=== PATIENT | male | born 1970 | race Caucasian/White ===

== ENCOUNTER 2016-07-06 10:57 | Emergency (ER) | payer BC ==
[2016-07-06] MEDS ORDERED: Sodium Chloride 0.9% 10 ML Syringe FLUSH PRN (11:37)
--- NOTE | 2016-07-06 11:41 | EDM.PDOC ---
ED HPI GI/ABDOMINAL - General Chief Complaint: Abdominal Pain Stated Complaint: ABDOMINAL PAIN/VOMITING/FEVER Time Seen by Provider: 07/06/16 11:13 Source of Information: Reports: Patient History Limitations: Reports: No limitations - History of Present Illness INITIAL COMMENTS - FREE TEXT/NARRATIVE: Patient is a 45-year-old male who presents to the ED complaining of shortness of breath, cough, epigastric discomfort, abdominal pain right upper and right lower quadrant, fever/chills, chronic diarrhea, and recent fever 100.4. Patient states he has chronic diarrhea and has been taking Imodium 4 times a day. This has been present since November of 2015. He's had a full workup including colonoscopy, EGD, and stool cultures. Patient states last night developed worsening pain to his epigastric region with fever/chills. States pain has progressively worsened over the evening. Denies any increase acid reflux. Still has appendix and gallbladder present. States discomfort is not related to eating. States diarrhea does increase with eating. In addition he' s had a cough for almost one month with increased mucus production recently. States he has chronic shortness of breath with increased tachycardia. Patient currently denies any chest pain, fever/chills, nausea/vomiting, pain with urination, and lightheadedness, dizziness, or any additional complaints. Past medical history includes chronic diarrhea, left ventricular hypertrophy, skin cancer. Current medications taking tramadol for bilateral knee pain, Imodium, nicardipine, atenolol, and Plavix. Patient denies any heart history unaware why he is on plavix. He is also taking cipro intermittently for epididymitis. Location: other (RUQ/RLQ) Quality: Reports: ache Severity: moderate Worsens with: Reports: palpation Context: Denies: sick contact, bad/questionable food, out of country travel, recent surgery, recent trauma, lifting, activity/exercise Associated Symptoms: Reports: diarrhea, fever/chills, loss of appetite, malaise , nausea/vomiting. Denies: chest pain, back pain, testicular pain, groin pain, shoulder pain, constipation, bloody stools - Related Data Allergies/ADRs: Allergies Allergy/AdvReac Type Severity Reaction Status Date / Time No Known Allergies Allergy Verified 07/06/16 11:09 Home Meds: Home Meds metFORMIN HCl [Metformin HCl] 500 mg PO BID #60 tablet 07/06/16 [Rx] ED ROS GENERAL - Review of Systems Review Of Systems: See Below Constitutional: Reports: fever, chills, malaise, decreased appetite Respiratory: Reports: Shortness of Breath, Cough, Sputum. Denies: Wheezing, Pleuritic Chest Pain, Hemoptysis Cardiovascular: Reports: Dyspnea on exertion. Denies: Chest pain, Edema, Lightheadedness, Palpitations, Syncope GI/Abdominal: Reports: Abdominal pain, Diarrhea, Decreased appetite, Nausea, Vomiting. Denies: Black stool, Bloody stool, Constipation, Distension, Flatus, Hematemesis, Melena, Stool incontinence : Denies: discharge, dysuria (Hx of epidymitis), flank pain, frequency, hematuria, pain Neurological: Denies: Confusion, Dizziness ED EXAM, GI/ABD - Physical Exam Exam: See Below General Appearance: alert, WD/WN, no apparent distress Eyes: bilateral: EOMI, erythema Ears: hearing grossly normal Nose: normal inspection Throat/Mouth: Normal inspection, Normal oropharynx, Normal voice, No airway compromise Neck: normal inspection, supple. No: lymphadenopathy (L), lymphadenopathy (R) Respiratory/Chest: no respiratory distress, lungs clear, normal breath sounds, no accessory muscle use, chest non-tender Cardiovascular: normal peripheral pulses, no murmur, tachycardia GI/Abdominal: normal bowel sounds, soft, no organomegaly, no distention, tenderness (epigastric/RUQ/RLQ) (Male) Exam: Deferred Rectal (Males) Exam: Deferred Back Exam: normal inspection. No: CVA tenderness (L), CVA tenderness (R) Extremities: normal inspection, non-tender, no pedal edema, normal capillary refill Neurological: alert, oriented, CN II-XII intact, normal cognition, no motor/ sensory deficits Psychiatric: normal affect, normal mood Skin Exam: Warm, Dry, Intact, Normal color, No rash Course - Vital Signs Last Recorded V/S: Last Vital Signs Temp 99.6 F 07/06/16 11:09 Pulse 89 07/06/16 16:30 Resp 18 07/06/16 16:30 BP 154/100 H 07/06/16 16:30 Pulse Ox 99 07/06/16 16:30 - Orders/Labs/Meds Orders: Active Orders 24 hr Category Date Time Status EKG Documentation Completion [RC] STAT Care 07/06/16 11:38 Active Peripheral IV Care [RC] . DIRECTED Care 07/06/16 11:38 Active CULTURE BLOOD [BC] Stat Lab 07/06/16 12:00 Received CULTURE BLOOD [BC] Stat Lab 07/06/16 12:07 Received Blood Culture x2 Reflex Set [OM.PC] Stat Oth 07/06/16 11:40 Ordered Peripheral IV Insertion Adult [OM.PC] Stat Oth 07/06/16 11:38 Ordered Labs: Laboratory Tests 07/06/16 07/06/16 07/06/16 Range/Units 12:07 12:07 12:25 WBC 9.42 H (4.23-9.07) K/mm3 RBC 5.08 (4.63-6.08) M/mm3 Hgb 15.4 (13.7-17.5) gm/L Hct 43.9 (40.1-51.0) % MCV 86.4 (79.0-92.2) fl MCH 30.3 (25.7-32.2) pg MCHC 35.1 (32.2-35.5) g/dl RDW Std Deviation 39.4 (35.1-43.9) fL Plt Count 171 (163-337) K/mm3 MPV 11.6 (9.4-12.3) fl Neut % (Auto) 87.3 H (34.0-67.9) % Lymph % (Auto) 5.1 L (21.8-53.1) % Ross % (Auto) 7.0 (5.3-12.2) % Eos % (Auto) 0.1 L (0.8-7.0) Baso % (Auto) 0.2 (0.1-1.2) % Neut # (Auto) 8.22 H (1.78-5.38) K/mm3 Lymph # (Auto) 0.48 L (1.32-3.57) K/mm3 Ross # (Auto) 0.66 (0.30-0.82) K/mm3 Eos # (Auto) 0.01 L (0.04-0.54) K/mm3 Baso # (Auto) 0.02 (0.01-0.08) K/mm3 Manual Slide Review Abnormal smear Hemoglobin A1c 8.20 H (4.50-6.20) % Urine Color (Yellow) Urine Appearance (Clear) Urine pH (5.0-8.0) Ur Specific [place] (1.005-1.030) Urine Protein (Negative) Urine Glucose (UA) (Negative) Urine Ketones (Negative) Urine Occult Blood (Negative) Urine Nitrite (Negative) Urine Bilirubin (Negative) Urine Urobilinogen (0.2-1.0) Ur Leukocyte Esterase (Negative) Urine RBC (0-5) /hpf Urine WBC (0-5) /hpf Ur Epithelial Cells (0-5) /hpf Urine Bacteria (FEW) /hpf Urine Mucus (FEW) /hpf C trachomatis DNA (PCR) Not detected N gonorrhoeae DNA (PCR) Not detected 07/06/16 Range/Units 13:53 WBC (4.23-9.07) K/mm3 RBC (4.63-6.08) M/mm3 Hgb (13.7-17.5) gm/L Hct (40.1-51.0) % MCV (79.0-92.2) fl MCH (25.7-32.2) pg MCHC (32.2-35.5) g/dl RDW Std Deviation (35.1-43.9) fL Plt Count (163-337) K/mm3 MPV (9.4-12.3) fl Neut % (Auto) (34.0-67.9) % Lymph % (Auto) (21.8-53.1) % Ross % (Auto) (5.3-12.2) % Eos % (Auto) (0.8-7.0) Baso % (Auto) (0.1-1.2) % Neut # (Auto) (1.78-5.38) K/mm3 Lymph # (Auto) (1.32-3.57) K/mm3 Ross # (Auto) (0.30-0.82) K/mm3 Eos # (Auto) (0.04-0.54) K/mm3 Baso # (Auto) (0.01-0.08) K/mm3 Manual Slide Review Hemoglobin A1c (4.50-6.20) % Urine Color [place] H (Yellow) Urine Appearance Cloudy H (Clear) Urine pH 5.5 (5.0-8.0) Ur Specific [place] 1.025 (1.005-1.030) Urine Protein 1+ H (Negative) Urine Glucose (UA) Trace H (Negative) Urine Ketones Trace H (Negative) Urine Occult Blood Negative (Negative) Urine Nitrite Negative (Negative) Urine Bilirubin Negative (Negative) Urine Urobilinogen 0.2 (0.2-1.0) Ur Leukocyte Esterase Negative (Negative) Urine RBC Not seen (0-5) /hpf Urine WBC 0-5 (0-5) /hpf Ur Epithelial Cells Not seen (0-5) /hpf Urine Bacteria Not seen (FEW) /hpf Urine Mucus Few (FEW) /hpf C trachomatis DNA (PCR) N gonorrhoeae DNA (PCR) Meds: Medications Discontinued Medications Generic Name Dose Route Start Last Admin Trade Name Freq PRN Reason Stop Dose Admin Al Hydroxide/Mg Hydroxide Confirm 07/06/16 12:37 07/06/16 13:59 Mag-Al Plus Administered 07/06/16 12:38 Not Given Dose 30 ml .ROUTE .STK-MED ONE Al Hydroxide/Mg Hydroxide 30 0 ml 07/06/16 12:35 07/06/16 12:35 ml/ Lidocaine HCl 15 ml PO 07/06/16 12:36 45 ml ONETIME ONE Administration Sodium Chloride 1,000 mls @ 75 mls/hr 07/06/16 11:45 07/06/16 12:26 Normal Saline IV 75 mls/hr ASDIRECTED PILO Administration Lidocaine HCl Confirm 07/06/16 12:37 07/06/16 13:59 Xylocaine 2% Viscous Administered 07/06/16 12:38 Not Given Dose 15 ml .ROUTE .STK-MED ONE Ondansetron HCl Confirm 07/06/16 12:37 07/06/16 13:59 Zofran Administered 07/06/16 12:38 Not Given Dose 4 mg .ROUTE .STK-MED ONE Ondansetron HCl 4 mg 07/06/16 12:35 07/06/16 13:58 Zofran IVPUSH 07/06/16 12:36 4 mg ONETIME ONE Administration Sodium Chloride 10 ml 07/06/16 11:37 07/06/16 12:26 Saline Flush FLUSH 10 ml ASDIRECTED PRN Administration Keep Vein Open - Re-Assessments/Exams Free Text/Narrative Re-Assessment/Exam: Order peripheral IV. Initial labs and studies include CBC, chem 14, CRP, lipase , UA, EKG, chest x-ray, d-dimer, blood cultures, para/media. In addition GI cocktail plus Zofran was ordered. EKG revealed sinus rhythm at a rate of 98, MI interval is 177, QTC is 4:30, LDH , old anteroseptal FL, left shoulder that, no acute ST changes noted. CXR: Nothing acute is identified a two-view chest x-ray. Labs: Sodium 137, potassium 3.4, creatinine 1.2, glucose 196, troponin 0.017, lipase 103, CRP 2.9, D-Dimer .039. GI cocktail did not improve symptoms. Reassessment, abdominal exam elicited worsening pain to the RUQ. Ordered ultrasound of abdomen to evaluate gall bladder. 07/06/16 14:56 Awaiting UA results. 07/06/16 15:20 UA negative for infection. Protein 1+, glucose trace, ketones trace. 07/06/16 16:05 Limited abdominal ultrasound impression: Sludge within the gallbladder. No gallstones, gallbladder wall thickening or biliary duct dilatation is seen. Pancreas obscured by bowel gas. No abnormality in the area of the pancreas is seen. Fatty infiltration within the liver. Reassessment, patient continues have some discomfort to his right upper quadrant. Will have patient follow his PCP in the next few days for reevaluation. Examination did not elicit pain to the mcburneys point. 07/06/16 16:23 Appt with González Cool scheduled for 07/10/16 12:45. 07/06/16 18:38 A1C 8.4, Will call the patient back and start him on metformin 500mg twice a day. I have attempted to reach him multiple of times. Unable to leave message due to full mailbox. I have transmitted the prescription. Will continue to try. [id number] Finally able to speak with patient. Made him aware of A1C results. Prescription sent to [facility] in [place]. Departure - Departure Time of Disposition: 16:06 Disposition: Home, Self-Care 01 Clinical Impression: Hypokalemia, RUQ abdominal pain Prescriptions: metFORMIN HCl [Metformin HCl] 500 mg PO BID #60 tablet Instructions: Abdominal Pain, Adult, [id number] Referrals: González Cool PA-C [Primary Care Provider] - Forms: ED Department Discharge Additional Instructions: Please call and make an appointment with your PCP tomorrow. Ultrasound of the gallbladder revealed sludge within the gallbladder with no gallstones, gallbladder wall thickening or biliary duct dilatation seen. Thus unclear why you are not feeling well. CXR was negative. Examination of abdomen did not reveal any additional pain to other quadrants. Push the fluids. Ensure adequate rest. Return to the E.D. for any new or worsening symptoms. - My Orders Last 24 Hours: My Active Orders 07/06/16 11:38 EKG Documentation Completion [RC] STAT Peripheral IV Care [RC] . DIRECTED Peripheral IV Insertion Adult [OM.PC] Stat 07/06/16 11:40 Blood Culture x2 Reflex Set [OM.PC] Stat 07/06/16 12:00 CULTURE BLOOD [BC] Stat 07/06/16 12:07 CULTURE BLOOD [BC] Stat - Assessment/Plan Last 24 Hours: My Active Orders 07/06/16 11:38 EKG Documentation Completion [RC] STAT Peripheral IV Care [RC] . DIRECTED Peripheral IV Insertion Adult [OM.PC] Stat 07/06/16 11:40 Blood Culture x2 Reflex Set [OM.PC] Stat 07/06/16 12:00 CULTURE BLOOD [BC] Stat 07/06/16 12:07 CULTURE BLOOD [BC] Stat
[2016-07-06] MEDS ORDERED: Sodium Chloride 0.9% 1,000 ML IV SCH (11:45)
[2016-07-06] MEDS ORDERED: Ondansetron 4 MG/2 ML SDV IVPUSH ONE (12:35)
[2016-07-06] MEDS ORDERED: Alum Hydrox/Mag Hydrox/Simeth 30 ML, Lidocaine 2% 15 ML PO ONE ×2 (12:35)
[2016-07-06] MEDS ORDERED: Lidocaine 2% Viscous Solution 15 ML Cup ONE (12:37)
[2016-07-06] MEDS ORDERED: Ondansetron 4 MG/2 ML SDV ONE (12:37)
[2016-07-06] MEDS ORDERED: Aluminum Hydroxide/Magnesium Hydroxide/Simethicone Susp 30 ML Cup ONE (12:37)
--- NOTE | 2016-07-06 13:04 | CR ---
Chest: Two views of the chest were obtained. Comparison: No previous chest x-ray. Heart size is normal. Tortuous thoracic aorta is seen. Lungs are clear. Bony structures are within normal limits for the patient's age. Impression: 1. Nothing acute is identified on two-view chest x-ray. Diagnostic code #1
--- NOTE | 2016-07-06 15:44 | US ---
Limited abdominal ultrasound: Multiple real-time images were obtained of the upper right abdomen. Liver shows no focal abnormality but is slightly echogenic suspicious for mild fatty infiltration. Gallbladder shows no shadowing gallstones. Sludge appears to be present within the gallbladder. No gallbladder wall thickening or biliary duct dilatation is seen. Pancreas is obscured from bowel gas. Right kidney shows no hydronephrosis or mass and has a length of 11.7 cm. Impression: 1. Sludge within the gallbladder. No gallstones, gallbladder wall thickening or biliary duct dilatation is seen. 2. Pancreas obscured from bowel gas. No abnormality in the area of the pancreas is seen. 3. Probable fatty infiltration within the liver. Diagnostic code #2
[2016-07-06 16:19] LABS: C. TRACHOMATIS BY PCR NOT DETECTED; N. GONORRHOEAE BY PCR NOT DETECTED
[2016-07-06 16:32] VITALS: BP 154/100
== END 2016-07-06 16:30 | disposition home or self-care (01) ==
LOC: JD.ED 10:57
DX: R10.11 Right upper quadrant pain (principal); E87.6 Hypokalemia; Z85.828 Personal history of other malignant neoplasm of skin
CPT/HCPCS: 36415; 71020; 76705; 80053; 81001; 83036; 83690; 83880; 84484; 85025; 85379; 86140; 87040; 87491; 87591; 93005; 96361; 96374; 99285; A9270; J2405; J7040; J7050; 99284

== ENCOUNTER 2016-10-01 15:26 | Emergency (ER) | payer BC ==
[2016-10-01] MEDS ORDERED: amLODIPine 5 MG Tab PO ONE (15:48)
[2016-10-01] MEDS ORDERED: Lisinopril 5 MG Tab PO ONE (15:48)
--- NOTE | 2016-10-01 15:49 | EDM.PDOC ---
ED HPI GENERAL MEDICAL PROBLEM - General Chief Complaint: Neurological Problem Stated Complaint: HIGH BLOOD PRESSURE Time Seen by Provider: 10/01/16 15:39 Source of Information: Reports: Patient History Limitations: Reports: No Limitations - History of Present Illness INITIAL COMMENTS - FREE TEXT/NARRATIVE: The patient is a 46-year-old male with a chief complaint of hypertension sent from clinic. Patient has been on multiple antihypertensives previously, some of which he is poorly tolerated. He is currently not taking any of his medications. He was seen in Dr. Calvert's clinic today and noted to have blood pressures of 230s over 1:30 so was sent here to rule out hypertensive emergency. Patient states that he has a mild headache and some slight ringing in the ears which he knows he has when his blood pressure is over 200. His no significant change in this. He has no other complaint. He states that he did have a twinge of chest pain earlier but this is resolved. Sometimes has some mild shortness of breath. He doesn't have any chest pain or shortness of breath right now. Slight blurry vision but no other neurological complaints. Has not tolerated diuretics or beta blockers. Overall he feels well and is not happy to be in the emergency department. Headache Pain Score (Numeric/FACES): 6 - Related Data Allergies Allergy/AdvReac Type Severity Reaction Status Date / Time No Known Allergies Allergy Verified 07/06/16 11:09 Home Meds: Home Meds metFORMIN HCl [Metformin HCl] 500 mg PO BID #60 tablet 07/06/16 [Rx] Lisinopril 20 mg PO DAILY 10/01/16 [History] Past Medical History Cardiovascular History: Reports: Hypertension, Other (See Below) Other Cardiovascular History: LVH Respiratory History: Reports: Other (See Below) Other Respiratory History: cough when laying down Gastrointestinal History: Reports: Chronic Diarrhea Genitourinary History: Reports: Other (See Below) Other Genitourinary History: epididymitis Hematologic History: Reports: Other (See Below) 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 Dermatologic History: Reports: Other (See Below) Other Dermatologic History: states skin cancer - Past Surgical History Musculoskeletal Surgical History: Reports: Arthroscopic Knee Social & Family History - Family History Family Medical History: Noncontributory - Tobacco Use Smoking Status *Q: Unknown Ever Smoked ED ROS GENERAL - Review of Systems Review Of Systems: See Below Constitutional: Denies: Fever Respiratory: Denies: Cough Cardiovascular: Reports: Chest Pain GI/Abdominal: Reports: No Symptoms Neurological: Reports: Headache ED EXAM, NEURO - Physical Exam Exam: See Below Exam Limited By: No Limitations General Appearance: Alert, WD/WN, No Apparent Distress Ears: Normal External Exam Nose: Normal Inspection, Normal Mucosa, No Blood Throat/Mouth: Normal Inspection, Normal Voice, No Airway Compromise Head Exam: Atraumatic, Normocephalic Neck: Normal Inspection, Supple Respiratory/Chest: No Respiratory Distress, Lungs Clear, Normal Breath Sounds, No Accessory Muscle Use Cardiovascular: Regular Rate, Rhythm, No Edema, No JVD, No Murmur GI/Abdominal: Soft, Non-Tender, No Distention. No: Rebound Neurological: Alert, Normal Mood/Affect, Normal Gait, No Motor/Sensory Deficits Extremities: Normal Inspection Psychiatric: Normal Affect, Normal Mood Skin Exam: Warm, Dry, Intact, Normal Color, No Rash Course - Vital Signs Last Recorded V/S: Last Vital Signs Temp 36.4 C 10/01/16 15:35 Pulse 77 10/01/16 15:35 Resp 18 10/01/16 15:35 BP 194/124 H 10/01/16 16:06 Pulse Ox 96 10/01/16 15:35 - Orders/Labs/Meds Orders: Active Orders 24 hr Category Date Time Status Chest 1V Frontal [CR] Stat Exams 10/01/16 15:50 Taken Labs: Laboratory Tests 10/01/16 10/01/16 Range/Units 15:50 15:50 WBC 8.46 (4.23-9.07) K/mm3 RBC 5.09 (4.63-6.08) M/mm3 Hgb 15.3 (13.7-17.5) gm/L Hct 42.7 (40.1-51.0) % MCV 83.9 (79.0-92.2) fl MCH 30.1 (25.7-32.2) pg MCHC 35.8 H (32.2-35.5) g/dl RDW Std Deviation 39.5 (35.1-43.9) fL Plt Count 209 (163-337) K/mm3 MPV 12.0 (9.4-12.3) fl Neut % (Auto) 71.0 H (34.0-67.9) % Lymph % (Auto) 17.0 L (21.8-53.1) % [place] % (Auto) 10.9 (5.3-12.2) % Eos % (Auto) 0.7 L (0.8-7.0) Baso % (Auto) 0.2 (0.1-1.2) % Neut # (Auto) 6.00 H (1.78-5.38) K/mm3 Lymph # (Auto) 1.44 (1.32-3.57) K/mm3 [place] # (Auto) 0.92 H (0.30-0.82) K/mm3 Eos # (Auto) 0.06 (0.04-0.54) K/mm3 Baso # (Auto) 0.02 (0.01-0.08) K/mm3 Sodium 140 (136-145) mEq/L Potassium 3.6 (3.5-5.1) mEq/L Chloride 105 (98-107) mEq/L Carbon Dioxide 27 (21-32) mEq/L Anion Gap 11.6 (5-15) BUN 20 H (7-18) mg/dL Creatinine 1.3 (0.7-1.3) mg/dL Est Cr Clr Drug Dosing 76.27 mL/min Estimated GFR (MDRD) 59 (>60) mL/min BUN/Creatinine Ratio 15.4 (14-18) Glucose 138 H (74-106) mg/dL Calcium 8.5 (8.5-10.1) mg/dL Total Bilirubin 0.6 (0.2-1.0) mg/dL AST 20 (15-37) U/L ALT 37 (16-63) U/L Alkaline Phosphatase 79 (46-116) U/L Troponin I < 0.017 (0.00-0.056) ng/mL Total Protein 7.5 (6.4-8.2) g/dl Albumin 3.9 (3.4-5.0) g/dl Globulin 3.6 gm/dL Albumin/Globulin Ratio 1.1 (1-2) Meds: Medications Discontinued Medications Generic Name Dose Route Start Last Admin Trade Name Freq PRN Reason Stop Dose Admin Amlodipine Besylate 5 mg 10/01/16 15:48 10/01/16 16:06 Norvasc PO 10/01/16 15:49 5 mg ONETIME ONE Administration Lisinopril 40 mg 10/01/16 15:48 10/01/16 16:06 Prinivil PO 10/01/16 15:49 40 mg ONETIME ONE Administration - Re-Assessments/Exams Free Text/Narrative Re-Assessment/Exam: 10/01/16 16:11 EKG shows normal sinus rhythm with LVH criteria and nonspecific T-wave flattening in the lateral leads. Also nonspecific T-wave flattening in the inferior leads. No ST elevation. Comparison EKG of June 2016, patient did have lateral T-wave abnormality on this EKG as well. 10/01/16 16:12 Patient is basically asymptomatic, he does have a mild headache but this is not unusual for him and he is a normal neurological exam. His EKG is not concerning for acute ischemia. Labs pending. We ordered lisinopril, a current home medication, 40 mg and also a dose of amlodipine 5 mg which his primary doctor has ordered to add to his antihypertensive regimen. We'll continue to observe. Blood pressures upon triage in the emergency department have been 190s to 200s systolic. 10/01/16 16:18 Chest x-ray shows mildly enlarged cardiac silhouette, no pulmonary edema or infiltrate, no acute abnormality. Labs showed negative troponin and creatinine of 1.3, otherwise unremarkable. 10/01/16 16:35 Continues to feel well. No evidence of hypertensive emergency, therefore no evidence for continuing to treat his hypertension in the emergency department or as an inpatient. Discussed strict return precautions and need for follow-up. Departure - Departure Time of Disposition: 16:31 Disposition: Home, Self-Care 01 Clinical Impression: Hypertension Qualifiers: Hypertension type: unspecified Qualified Code(s): I10 - Essential (primary) hypertension - Discharge Information Instructions: Hypertension, [id number] Referrals: Jeannette Gomez [Primary Care Provider] - Forms: ED Department Discharge Additional Instructions: 1. Take all of your medications as prescribed. We gave you a dose of lisinopril and amlodipine, so you don't need to take these meds again until tomorrow. OK to take them in the morning if that's when you usually take your medications. 2. Follow up with Dr. Cannon as planned. 3. Return to the ED if you have chest pain, shortness of breath, severe headache, or any other concerning symptoms. - My Orders Last 24 Hours: My Active Orders 10/01/16 15:50 Chest 1V Frontal [CR] Stat - Assessment/Plan Last 24 Hours: My Active Orders 10/01/16 15:50 Chest 1V Frontal [CR] Stat
[2016-10-01 16:07] VITALS: BP 194/124
--- NOTE | 2016-10-01 16:50 | CR ---
Chest: Portable view of the chest was obtained. Comparison: Previous chest x-ray of 07/06/16. Heart size and mediastinum are within normal limits for portable technique. Lungs are clear. Bony structures are grossly intact. Impression: 1. Nothing acute is identified on portable chest x-ray. Diagnostic code #1
== END 2016-10-01 16:38 | disposition home or self-care (01) ==
LOC: JD.ED 15:26 → SUPCPDRO 15:26 → JD.ED 16:38
DX: I10 Essential (primary) hypertension (principal); Z79.84 Long term (current) use of oral hypoglycemic drugs; Z79.899 Other long term (current) drug therapy
CPT/HCPCS: 36415; 71010; 80053; 84484; 85025; 99284; A9270; 99283